=== PATIENT | male | born 1975 | race Caucasian/White ===

== ENCOUNTER 2017-08-25 20:28 | Emergency (ER) | payer MEDICARE, OTHER ==
[~2017-08-25] VITALS: Ht 172.7 cm; Wt 69.0 kg
[2017-08-25 20:37] VITALS: BP 128/86
== END 2017-08-26 01:31 | disposition left against medical advice (07) ==
LOC: ER 20:28
DX: M25.571 Pain in right ankle and joints of right foot (principal); F41.9 Anxiety disorder, unspecified; F12.10 Cannabis abuse, uncomplicated; Z53.21 Procedure and treatment not carried out due to patient leaving prior to being seen by health care provider